=== PATIENT | male | born 1980 | race Caucasian/White ===

== ENCOUNTER 2024-03-25 10:33 | Emergency (ER) | payer MEDICAID | END 2024-03-25 11:30 | disposition home or self-care (01) | LOC: ER 10:34 | DX: E11.65 Type 2 diabetes mellitus with hyperglycemia (principal); Z91.148 Patient's other noncompliance with medication regimen for other reason; R07.89 Other chest pain | CPT/HCPCS: 93005; 99283 ==

== ENCOUNTER 2024-03-25 18:56 | Emergency (ER) | payer MEDICAID ==
[~2024-03-25] VITALS: Ht 172.7 cm; Wt 62.3 kg
[2024-03-25 19:19] VITALS: TEMP 98
[2024-03-25 20:18] LABS: BASOPHILS # (AUTO) 0.1 X10'3 (0-0.2); BASOPHILS % (AUTO) 0.9 % (0-1); EOSINOPHILS # (AUTO) 0.6 X10'3 (0-0.9); EOSINOPHILS % (AUTO) 8.2 % (0-6); HEMATOCRIT 39.9 % (42.0-52.0); HEMOGLOBIN 13.4 g/dl (14.0-17.9); LYMPHOCYTES # (AUTO) 3.1 X10'3 (1.1-4.8); LYMPHOCYTES % (AUTO) 41.8 % (21-51); MEAN CORPUSCULAR HEMOGLOBIN 32.3 PG (27.0-31.0); MEAN CORPUSCULAR HGB CONC 33.5 g/dL (33.0-36.5); MEAN CORPUSCULAR VOLUME 96.3 FL (78-98); MEAN PLATELET VOLUME 8.7 FL (7.4-10.4); MONOCYTES # (AUTO) 0.7 X10'3 (0-0.9); MONOCYTES % (AUTO) 9.1 % (2-12); PLATELET COUNT 226 X10'3 (140-440); RED BLOOD COUNT 4.14 X10'6 (4.70-6.10); WHITE BLOOD COUNT 7.4 X10'3 (4.5-11.0)
[2024-03-25] MEDS: normal saline 1000ML IV soln IVB ONE (20:26)
[2024-03-25 20:34] LABS: ALBUMIN 3.4 G/DL (3.4-5.0); ANION GAP 7 (8-16); BLOOD UREA NITROGEN 11 MG/DL (7-18); BUN/CREATININE RATIO 11.1 (10.0-20.0); CALCIUM 8.6 MG/DL (8.5-10.1); CHLORIDE 104 MMOL/L (99-107); CREATININE 0.99 MG/DL (0.60-1.10); GLUCOSE 241 MG/DL (70-104); POTASSIUM 4.1 MMOL/L (3.5-5.1); SODIUM 137 MMOL/L (135-145); TOTAL CARBON DIOXIDE 26.1 MMOL/L (24-32); eCRCL 84 ML/MIN; eGFR 82 ML/MIN
[2024-03-25 20:35] LABS: HEMOGLOBIN A1C 9.7 % (4.5-6.2)
[2024-03-25] MEDS: normal saline 1000ml 1,000 ML IV ONE (21:40)
[2024-03-25] MEDS: normal saline 1000ml 1,000 ML IV SCH (21:45)
[2024-03-26 00:14] VITALS: BP 112/80; PULSE 76; RESP 16; O2SAT 98
[2024-03-26] MEDS: insulin regular, human 10 units/0.1 ml syringe IV ONE (00:18)
== END 2024-03-26 00:18 | disposition home or self-care (01) ==
LOC: ER 18:56
DX: E11.65 Type 2 diabetes mellitus with hyperglycemia (principal); Z88.8 Allergy status to other drugs, medicaments and biological substances
CPT/HCPCS: 36415; 80048; 82948; 83036; 83605; 84484; 85025; 87040; 93005; 96360; 96361; 99285; J7030

== ENCOUNTER 2024-03-26 05:42 | Emergency (ER) | payer MEDICAID | END 2024-03-26 06:21 | disposition left against medical advice (07) | LOC: ER 05:43 | DX: R41.0 Disorientation, unspecified (principal); R79.89 Other specified abnormal findings of blood chemistry; Z53.21 Procedure and treatment not carried out due to patient leaving prior to being seen by health care provider | CPT/HCPCS: 82948 ==